=== PATIENT | male | born 1950 | race Caucasian/White ===

== ENCOUNTER 2016-11-18 10:00 | Emergency (ER) | payer BC ==
[~2016-11-18 10:00] MED LIST: ALEVE220 MG PO; FESO4 PO; JANUVIA100 MG PO; LEVAQUIN750 MG PO; NEXIUM20 M1 PO; P5 PO; PR25 PO; PR25R PR; PRIN2.5 PO; SYN075 PO; Z100 PO; ZIPSOR25 MG PO
[2016-11-18 11:09] LABS: MEAN CORPUS HGB CONC 31.8 g/dL (32.0-36.0); MEAN PLATELET VOLUME 8.8 fL (9.2-13.0)
[2016-11-18 11:11] LABS: HEMATOCRIT 42.1 % (40.0-51.0); HEMOGLOBIN 13.4 g/dL (13.6-17.8); MEAN CORPUSCULAR HEMOGLOB 26.3 pg (26.0-34.0); MEAN CORPUSCULAR VOLUME 82.5 fL (80-100); PLATELET COUNT 138 10/3/uL (150-400); WHITE BLOOD CELLS 2.9 10/3/uL (4.5-10.5)
[2016-11-18 11:17] LABS: ASCORBIC ACID (UR NOT ORDER) NEG (NEG); BILIRUBIN, URINE NEGATIVE (NEG); ER URINALYSIS TAT 0 Hrs 12 Mins; KETONE, URINE TRACE MG/DL (NEG); LEUKOCYTE ESTERASE(NOT OR NEG (NEG); NITRITE (URINE) NEG (NEG); WBC (NOT ORDERED) (RFLEX) 1 (0-5)
[2016-11-18 11:27] LABS: A/G RATIO 1.1 (0.7-1.9); ALBUMIN 3.8 G/DL (3.5-5.0); ALKALINE PHOSPHATASE 73 U/L (45-117); BUN (BLOOD UREA NITROGEN) 17 MG/DL (6-23); CALCIUM, SERUM 9.3 MG/DL (8.5-10.4); CHLORIDE, SERUM 103 MMOL/L (96-112); CO2 (CARBON DIOXIDE) 25 MMOL/L (24-34); CREATININE 1.66 MG/DL (0.70-1.30); DIRECT BILIRUBIN 0.1 MG/DL (0.0-0.4); GFR AFRICAN AMERICAN 49 ML/MIN (>=60); GFR NON AFRICAN AMERICAN 43 ML/MIN (>=60); GLOBULIN 3.4 G/DL (2.5-4.1); GLUCOSE, SERUM 106 MG/DL (60-99); INDIRECT BILIRUBIN(NOT ORDER) 0.4 MG/DL (0.1-0.9); POTASSIUM, SERUM 3.7 MMOL/L (3.5-5.3); SGOT(AST) 23 U/L (5-40); SGPT(ALT) 27 U/L (5-65); SODIUM, SERUM 140 MMOL/L (135-148); TOTAL BILIRUBIN 0.5 MG/DL (0-1.2); TOTAL PROTEIN 7.2 G/DL (6.0-8.5)
[2016-11-18 11:40] LABS: BAND NEUTROPHILS 8 %; BASOPHILS 1 %; BASOPHILS ABSOLUTE (CALC) 0.03 10/3/uL (0.0-0.16); EOSINOPHILS 2 %; EOSINOPHILS ABSOLUTE (CALC) 0.06 10/3/uL (0.0-0.53); LYMPHOCYTES 18 %; LYMPHOCYTES ABSOLUTE (CALC) 0.52 10/3/uL (0.67-4.30); MONOCYTES 7 %; NEUTROPHILS ABSOLUTE (CALC) 2.09 10/3/uL (2.02-8.40); SEGMENTED NEUTROPHIL (0) 64 %; TOTAL NUCLEATED CELLS 100
[2016-11-18 11:41] LABS: MACROCYTES 1+ (5-10/OIF) (0-5/OIF); PLATELET ESTIMATE SLT DEC (ADEQUATE); POLYCHROMASIA 1+ (2-5/OIF) (0-1/OIF)
[2016-11-18 11:42] LABS: ELLIPTOCYTES 1+ (3-10/OIF) (0-2/OIF); HELMET CELLS OCC (0-2/OIF); TEARDROP SHAPED RBCS OCC (0-2/OIF)
== END 2016-11-18 15:41 | disposition home or self-care (01) ==
LOC: ER 10:00
PROVIDERS: Physician Assistant
DX: J32.9 Chronic sinusitis, unspecified (principal); I10 Essential (primary) hypertension; E11.9 Type 2 diabetes mellitus without complications; Z88.5 Allergy status to narcotic agent; Z79.52 Long term (current) use of systemic steroids
CPT/HCPCS: 80053; 81001; 82248; 83690; 85007; 85027; 96374; 96376; 99284; A9270-GY; J2405